=== PATIENT | female | born 1945 | race Caucasian/White ===

== ENCOUNTER 2017-01-06 10:03 | Day surgery (SDC) | payer MEDICARE, BC ==
[2017-01-05 08:27] VITALS: BMI 33.1
[~2017-01-06 10:03] MED LIST: LACTATED RINGERS 1,000 ML IV SCH; LIDOCAINE 1% 20 ML VIAL (10MG/ML) FOR IV START INTRADERMA PRN
[2017-01-06 11:52] VITALS: TEMP 97.4
[2017-01-06] MEDS ORDERED: fentaNYL (PF) 50 MCG/ML 2 ML AMP IV ONE (12:16)
[2017-01-06] MEDS ORDERED: PROPOFOL 10 MG/ML 20 ML VIAL IV ONE (13:49)
--- NOTE | 2017-01-06 14:28 | P.PCN ---
Date of Procedure: 01/06/17 Procedure(s) Performed: Procedure: Total colonoscopy. Preoperative diagnosis: Blood in the stools. Postoperative diagnosis: 1. Low-grade internal hemorrhoids without bleeding at the time of this exam. 2. Sigmoid diverticulosis with no evidence of acute diverticulitis or strictures. Preparation: HalfLytely prep. Sedation: Was provided by anesthesia. Brief clinical history: The patient is a 71-year-old female who was evaluated in the office last month because of finding of blood in her stools. She has no significant bowel issues or overt bleeding her last colonoscopy was in 2008 or so. Procedure: With the patient on her left lateral decubitus position and after informed consent and adequate sedation, the perianal area was inspected and it did not show any fissures or fistulas. There were no masses felt on digital rectal examination. The Olympus CFQ 160L video colonoscope was then inserted in the rectum in the usual fashion and advanced to the cecum. The mucosa appeared healthy. There were multiple diverticular orifices seen scattered in the sigmoid with no evidence of acute diverticulitis or strictures. No polyps or tumors were seen. I retroflexed the endoscope in the rectum before the endoscope was withdrawn. Low-grade internal hemorrhoids were noted with no evidence of bleeding. The patient tolerated the procedure well. Plan: The patient was reassured. Discussed dietary measures and local care for hemorrhoids. She will follow-up with you as planned. In the absence of upper GI complaints or anemia I did not schedule an upper endoscopy at this time and this can be left as a contingency.
[2017-01-06 14:43] VITALS: BP 138/78; PULSE 85; RESP 18
== END 2017-01-06 15:16 | disposition home or self-care (01) ==
LOC: ORWHC2ENDO 10:03
DX: K57.30 Diverticulosis of large intestine without perforation or abscess without bleeding (principal); K64.8 Other hemorrhoids; I25.10 Atherosclerotic heart disease of native coronary artery without angina pectoris; I10 Essential (primary) hypertension; Z95.5 Presence of coronary angioplasty implant and graft; E07.9 Disorder of thyroid, unspecified; Z79.899 Other long term (current) drug therapy
CPT/HCPCS: 45378; J3010; J2704

== ENCOUNTER → 2018-02-03 | Outpatient (CLI) | payer MEDICARE, BC ==
--- NOTE | 2018-02-03 15:33 | XR ---
EXAMINATION TYPE: XR foot complete LT DATE OF EXAM: 02/03/2018 CLINICAL HISTORY: Left foot in particular first toe pain after stubbing injury. History of prior surg dorys. TECHNIQUE: Frontal, lateral, and oblique images of the left foot are obtained. COMPARISON: None FINDINGS: There is no acute fracture/dislocation evident in the left foot. There is postsurgical kareem nge from bunion correction surgery at of first metatarsophalangeal joint with metallic hardware, sati sfactory alignment is seen. There is additional screw in the second metatarsal head with joint space loss and moderate marginal osteophytes. There is flexion and varus positioning of distal third throug h fifth toes. Tiny inferior calcaneal spur is seen. Overlying soft tissue is unremarkable IMPRESSION: There is no acute fracture or dislocation in the left foot.
== END | disposition home or self-care (01) ==
LOC: RADXRMAIN 15:03
PROVIDERS: ATTEND Family Medicine
DX: M79.675 Pain in left toe(s) (principal)

== ENCOUNTER → 2023-03-23 | Outpatient (CLI) | payer OTHER ==
--- NOTE | 2023-03-23 17:10 | NM ---
EXAMINATION TYPE: NM bone scan whole body DATE OF EXAM: 03/23/2023 COMPARISON: NONE HISTORY: Continued chronic pain low back pain radiating towards foot Delayed whole-body scanning was performed following the injection of 23.4 mCi Tc 99m MDP. Images wer e acquired 4 hours post injection. FINDINGS: There is increased radiotracer at the bilateral shoulders as well as the sternoclavicular junctions g reater on the right. Findings can be compatible with degenerative change. There is a focus of increased radiotracer accumulation in the region of the anterior seventh rib. Thi s could be a solitary posttraumatic injury. Correlate for pain. As increased radiotracer accumulation through the L5 vertebral level and increased radiotracer in the posterior right L4-5 level. Correlate for compression fracture. There are no plain films at this loc ation for comparison. Plain film correlation is recommended There is increased radiotracer accumulation at the bilateral knees. This is more focal in the left pa tella and the right medial tibial plateau. Findings are likely related to degenerative changes. There may be a right knee prosthesis. Consider loosening along the medial aspect. Plain film correlation r ecommended. There is increased radiotracer accumulation at the ankles and mid feet bilaterally. This is compatibl e with degenerative type changes. IMPRESSION: 1. Focal radiotracer through the L5 vertebral body. Correlate for acute compression deformity. Plain film correlation recommended. 2. Increased radiotracer in the posterior right L4-5 level could be degenerative with facets related to some acute trauma. 3. Probable solitary posttraumatic change anterior right rib in the region of the seventh anterior ri b. 4. Degenerative changes at the remaining joint spaces discussed above. If there is focal pain at the right knee, plain film correlation can be performed.
== END | disposition home or self-care (01) ==
LOC: RADNMMAIN 09:54
PROVIDERS: ATTEND Physical Medicine & Rehabilitation
DX: S32.050S Wedge compression fracture of fifth lumbar vertebra, sequela (principal); S32.010S Wedge compression fracture of first lumbar vertebra, sequela; M47.26 Other spondylosis with radiculopathy, lumbar region
CPT/HCPCS: 78306; A9503